=== PATIENT | female | born 1985 | race Two or more races ===

== ENCOUNTER 2017-08-07 18:19 | Emergency (ER) | payer OTHER ==
[~2017-08-07] VITALS: Ht 154.9 cm; Wt 72.6 kg
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
--- NOTE | 2017-08-07 19:43 | NUR ---
PT OK TO DISCHARGE PER [employer] [place] [employer], Patient discharged to home in stable condition. Written and verbal after care instructions given. Patient verbalizes understanding of instruction.Patient is awake and alert to self, day, and place. PT ambulatory with a steady gait
[2017-08-07 19:44] VITALS: BP 115/71
== END 2017-08-07 19:45 | disposition home or self-care (01) ==
LOC: ER 18:20
DX: O9A.212 Injury, poisoning and certain other consequences of external causes complicating pregnancy, second trimester (principal); S39.012A Strain of muscle, fascia and tendon of lower back, initial encounter; Z3A.26 26 weeks gestation of pregnancy; V43.52XA Car driver injured in collision with other type car in traffic accident, initial encounter; Y93.89 Activity, other specified; Y92.89 Other specified places as the place of occurrence of the external cause; Y99.8 Other external cause status
CPT/HCPCS: 76856-TC; A4606; Z7610

== ENCOUNTER 2018-05-09 21:39 | Emergency (ER) | payer OTHER, MEDICAID ==
[~2018-05-09] VITALS: Ht 154.9 cm; Wt 77.1 kg
[2018-05-09 21:44] VITALS: BP 125/79
== END 2018-05-09 23:42 | disposition home or self-care (01) ==
LOC: ER 21:52
DX: S90.121A Contusion of right lesser toe(s) without damage to nail, initial encounter (principal); Z98.890 Other specified postprocedural states; W22.8XXA Striking against or struck by other objects, initial encounter; Y93.89 Activity, other specified; Y92.89 Other specified places as the place of occurrence of the external cause; Y99.8 Other external cause status
CPT/HCPCS: 73660; 99283; A4606